=== PATIENT | female | born 1945 | race Caucasian/White ===

== ENCOUNTER 2018-06-28 13:11 | Inpatient (IN) | payer MEDICARE, OTHER ==
[~2018-06-28] VITALS: Ht 170.2 cm; Wt 93.8 kg
[~2018-06-28 13:11] MED LIST: ARTHROTEC 775 MG/TAB PO; ASPIRIN 32325 MG/TAB PO; CALCIUM 600 + V1 TA1 PO; CHROMIUM PICO200 MC1 PO; FERROUS SU325 MG/TAB PO; FOLIC ACID 40400 MCG PO; GLUCOPHAGE500 MG/TAB PO; MULTIPLE VITAMI1 CAP PO; PRINIVIL2.5 MG; PRINZIDE 12.5 M1 TA1 PO; RITE AID KRILL500 MG PO; VITAMIN C500 MG PO
[2018-08-28] VITALS (10 sets, daily range): BP systolic 102–172; BP diastolic 52–79; PULSE 61–106; TEMP 97.4–98.5
[2018-08-28] MEDS ORDERED: NORVASC 5MG5 MG/TAB PO (07:24)
[2018-08-28] MEDS ORDERED: PRIL40 PO (07:25)
[2018-08-29] VITALS (7 sets, daily range): BP systolic 116–157; BP diastolic 66–77; PULSE 72–111; TEMP 97.2–100
[2018-08-29 06:56] LABS: HEMOGLOBIN 11.8 g/dl (12.5-16.0)
[2018-08-29 06:57] LABS: HEMATOCRIT 35.5 % (37.0-47.0)
[2018-08-30 01:10] VITALS: BP 117/69; PULSE 103; TEMP 97.7
[2018-08-30 03:59] VITALS: BP 109/58; PULSE 96; TEMP 98
[2018-08-30 07:15] VITALS: BP 118/60; PULSE 96; TEMP 98.5
[2018-08-30] MEDS ORDERED: NORCO 325 MG-7.1 TAB PO (07:15)
[2018-08-30] MEDS ORDERED: ASPI325T6 PO (07:15)
[2018-08-30] MEDS ORDERED: ROXICODONE 55 MG/TAB PO (07:16)
[2018-08-30 10:45] VITALS: BP 117/65; PULSE 88; TEMP 98.6
== END 2018-08-30 15:30 | disposition home or self-care (01) | DRG 470 ==
LOC: JCC 08-28 06:51
PROVIDERS: Orthopaedic Surgery
PROC: 0SRD0J9 Replacement of Left Knee Joint with Synthetic Substitute, Cemented, Open Approach (ICD-10-PCS; principal; 2018-08-28 10:15)
DX: M17.12 Unilateral primary osteoarthritis, left knee (principal); I10 Essential (primary) hypertension; Z85.820 Personal history of malignant melanoma of skin; Z85.048 Personal history of other malignant neoplasm of rectum, rectosigmoid junction, and anus
CPT/HCPCS: A4314; A4315; A9284; C1713; C1776; J0690; J2250; J2704; J7120

== ENCOUNTER → 2018-08-19 | Outpatient (CLI) | payer MEDICARE ==
[2018-08-19 16:53] LABS: HIV 1/2 Antibodies Non-Reactive; HIV-1p24 Antigen Non-Reactive
== END ==
LOC: COL.LAB 15:03
PROVIDERS: Orthopaedic Surgery
DX: Z01.812 Encounter for preprocedural laboratory examination (principal); M17.12 Unilateral primary osteoarthritis, left knee